=== PATIENT | male | born 1965 | race Caucasian/White ===

== ENCOUNTER 2020-12-03 17:07 | Inpatient (IN) | payer BC ==
[~2020-12-03] VITALS: Ht 185.4 cm; Wt 109.3 kg
[2020-12-03 17:12] VITALS: BP 182/97
[2020-12-03] MEDS ORDERED: MELOXICAM15 MG PO (17:17)
[2020-12-03] MEDS ORDERED: JARDIANCE25 MG PO (17:17)
[2020-12-03] MEDS ORDERED: SHINGRIX ADJUV0.5 ML IM (17:18)
[2020-12-03] MEDS ORDERED: METFORMIN HCL500 MG PO (17:18)
[2020-12-03] MEDS ORDERED: GLIMEPIRIDE4 MG PO (17:19)
[2020-12-03] MEDS ORDERED: LIPITOR40 MG PO (17:19)
[2020-12-03] MEDS ORDERED: LISINOPRIL10 MG PO (17:19)
[2020-12-03] MEDS ORDERED: FLEXERIL PO (17:19)
[2020-12-03] MEDS ORDERED: LEXAPRO20 MG PO (17:20)
[2020-12-03] MEDS ORDERED: [UNRECOGNIZED DRUG - OTHER] IM (17:20)
[2020-12-03] MEDS ORDERED: AMBIEN 10 MG TA10 MG PO (17:21)
[2020-12-03] MEDS ORDERED: NORCO7.5 PO (17:21)
[2020-12-03 17:34] LABS: ABSOLUTE BASOPHILS 0.1 thou/uL (0.0-0.2); ABSOLUTE EOSINOPHILS 0.4 thou/uL (0.0-0.7); ABSOLUTE LYMPHOCYTES 3.1 thou/uL (0.8-5.3); ABSOLUTE MONOCYTES 0.5 thou/uL (0.0-1.2); ABSOLUTE NEUTROPHILS 8.4 thou/uL (1.6-8.1); BASOPHILS 0.9 %; EOSINOPHILS 3.4 %; HEMATOCRIT 46.1 % (42.0-52.0); LYMPHOCYTES 24.8 %; MCH 29.3 pg (26.0-34.0); MCHC 34.8 g/dL (28.0-37.0); MCV 84.1 fL (80.0-100.0); MONOCYTES 4.1 %; MPV 7.4 fl. (7.2-11.1); NUCLEATED RBCS 0 /100WBC; PLATELET COUNT* 249 thou/uL (150-400); POLYS 66.8 %; RBC 5.48 mil/uL (4.50-6.00); RDW-CV 13.8 % (10.5-14.5); WBC 12.6 thou/uL (4.0-11.0)
[2020-12-03 17:42] LABS: CALCIUM 9.3 mg/dL (8.5-10.1); CREATININE 1.2 mg/dL (0.6-1.3); POTASSIUM 3.7 mmol/L (3.5-5.1)
[2020-12-03 17:52] LABS: ALBUMIN 4.5 g/dL (3.4-5.0); MAGNESIUM 1.8 mg/dL (1.8-2.4); TOTAL BILIRUBIN 0.4 mg/dL (<0.1-1.0); TOTAL PROTEIN 8.5 g/dL (6.4-8.2)
--- NOTE | 2020-12-03 20:22 | NUR ---
Heparin gtt started at 2006, see chart and attached paperwork.
--- NOTE | 2020-12-03 21:25 | NUR ---
REPORT GIVEN TO TEDDY BRAUN.
[2020-12-03 21:44] VITALS: BP 102/58
[2020-12-03 21:45] VITALS: BP 109/52
[2020-12-04] VITALS (8 sets, daily range): BP systolic 95–149; BP diastolic 45–76
[2020-12-04 02:23] LABS: ABSOLUTE EOSINOPHILS 0.8 thou/uL (0.0-0.7); ABSOLUTE LYMPHOCYTES 4.6 thou/uL (0.8-5.3); ABSOLUTE MONOCYTES 0.6 thou/uL (0.0-1.2); ABSOLUTE NEUTROPHILS 3.9 thou/uL (1.6-8.1); BASOPHILS 0.1 %; HEMOGLOBIN 14.9 gm/dL (14.0-18.0); LYMPHOCYTES 46.7 %; MCH 29.6 pg (26.0-34.0); MCHC 34.6 g/dL (28.0-37.0); MCV 85.5 fL (80.0-100.0); MONOCYTES 5.8 %; MPV 7.3 fl. (7.2-11.1); NUCLEATED RBCS 0 /100WBC; PLATELET COUNT* 230 thou/uL (150-400); POLYS 39.4 %; RBC 5.03 mil/uL (4.50-6.00); RDW-CV 13.7 % (10.5-14.5); WBC 9.8 thou/uL (4.0-11.0)
[2020-12-04 03:15] LABS: CALCIUM 9.5 mg/dL (8.5-10.1)
--- NOTE | 2020-12-04 06:27 | NUR ---
ASSUMED PT CARE AT APPROX. 2133. PT ARRIVED VIA ED CART. REPORT RECEIVED PER YAMILETH IN ER. PT ADMITTED FOR NSTEMI. VSS. PT DENIES C/O CHEST PAIN. PT REPORTS CHRONIC BACK AND SHOULDER PAIN. MEDICATIONS ADMINISTERED PRESCRIBED. PT IS ON A HEPARIN GTT PROTOCOL. SEE EMAR AND HEPARIN FLOW SHEET. NEXT aPTT LAB IS SCHEDULED TO BE DRAWN TODAY AT 0930. PT IS TRACING SR ON THE DUCT MAKER. ALL PAPERWORK HAS BEEN SIGNED. FALL PRECAUTIONS IN PLACE FOR SAFETY. HOURLY ROUNDS COMPLETE CHARTED. ASSESSMENTS COMPLETED. WILL CONT. TO MONITOR.
[2020-12-04 09:29] LABS: AMP/METHAMP Negative (Negative); BARBITURATES Negative (Negative); BENZODIAZEPINES Negative (Negative); COCAINE Negative (Negative); METHADONE Negative (Negative); OPIATES POSITIVE (Negative); PCP Negative (Negative); THC POSITIVE (Negative)
[2020-12-04 12:00] LABS: CHOLESTEROL 156 mg/dL (<200); HDL CHOLESTEROL 32 mg/dL (>40); LDL CHOLESTEROL 47 mg/dL (<100); TC:HDL 4.9 Ratio (Not establshd); TRIGLYCERIDE 386 mg/dL (<150); VLDL 77 mg/dL (<40)
[2020-12-04 12:01] LABS: SERUM ASSESSMENT Moderate Lipemia
--- NOTE | 2020-12-04 14:16 | EKG ---
[place] [address] ELECTROCARDIOGRAM REPORT Name: ALBA MUNOZ Room: [address] ADM IN .R.#: [id number] Admission: 12/03/20 Attend Phys: Waldemar Elliott, Discharge: Date of : 61 Date of Service: 12/03/20 1712 Report #: [id number] THIS REPORT FOR: //name// [facility] ED Test Date: 2020-12-03 Test Time: 17:12:16 Pat Name: ALBA MUNOZ Department: Room: [facility] Gender: M Strategic Communications Specialist: TP : 1965 Requested By: Ander Calles Order Number: [id number] MD: Brandon Weeks Measurements Intervals [place] Rate: 109 P: 66 CA: 156 QRS: 83 QRSD: 106 T: 50 QT: 365 QTc: 492 Interpretive Statements Sinus tachycardia Borderline prolonged QT interval No previous ECG available for comparison Electronically Signed On 12-04-2020 14:16:20 CDT by Brandon Weeks [email or web address] <ELECTRONICALLY SIGNED> By: Brandon Weeks MD, [facility] 12/04/20 1416 11 11 Brandon Weeks MD, [facility] /EPI
--- NOTE | 2020-12-04 20:22 | NUR ---
I ASSUMED CARE OF THE PATIENT AT 0700. HE IS ALERT AND ORIENTED X4 AND IS UP WITH SBA. BED IS IN THE LOW LOCKED POSITION AND CALL LIGHT IS IN REACH. HOURLY ROUNDING IS COMPLETED AND PATIENT NEEDS ARE MET. PAIN IS MANAGED WITH PRN MEDS. PATIENT IS ON TWO DRIPS AND WILL HAVE AN ANGIOPLASTY IN THE AM. BLOOD GLUCOSE IS BEING MONITORED. WILL CONTINUE TO MONITOR.
[2020-12-05 01:57] LABS: HEMATOCRIT 41.4 % (42.0-52.0); HEMOGLOBIN 14.4 gm/dL (14.0-18.0); MCH 29.6 pg (26.0-34.0); MCHC 34.6 g/dL (28.0-37.0); MCV 85.4 fL (80.0-100.0); MPV 7.2 fl. (7.2-11.1); RBC 4.85 mil/uL (4.50-6.00); RDW-CV 13.8 % (10.5-14.5); WBC 9.6 thou/uL (4.0-11.0)
[2020-12-05 02:44] LABS: CALCIUM 9.6 mg/dL (8.5-10.1); CREATININE 1.2 mg/dL (0.6-1.3); POTASSIUM 3.9 mmol/L (3.5-5.1)
[2020-12-05 04:04] VITALS: BP 110/48
--- NOTE | 2020-12-05 04:26 | NUR ---
ASSUMED PT CARE AT APPROX. 2318. PT ARRIVED VIA ED CART. REPORT RECEIVED PER [facility] IN ER. PT ADMITTED FOR SYNCOPE AND ARF. VSS. PT DENIES C/O PAIN. PT HAS AN 18G LAC W/ NS @100ML/HR. SEE EMAR. PT IS TRACING SR ON THE SLIP LASTER. ALL PAPERWORK HAS BEEN SIGNED. FALL PRECAUTIONS IN PLACE FOR SAFETY. HOURLY ROUNDS COMPLETE CHARTED. ASSESSMENTS COMPLETED. CALL LIGHT WITHIN REACH. WILL CONT. TO MONITOR.
--- NOTE | 2020-12-05 05:03 | NUR ---
ASSUMED PT CARE AT APPROX. 1915. PT IS A/OX4. VSS. PT DENIES C/O CHEST PAIN. MEDICATIONS ADMINISTERED PRESCRIBED. PT IS ON A HEPARIN GTT AND HAS BEEN TITRATED PER PROTOCOL. aPTT LABS DRAWN THIS EVENING. PT IN THERAPEUTIC RANGE. NEXT LAB DRAW RESCHEDULED FOR THIS AM AT 0740. SEE EMAR AND HEPARIN FLOW SHEET. PT IS ALSO ON A NITRO GTT PER CARDIOLOGY. SEE EMAR. PT IS TRACING SR ON THE TRIAGE NURSE. FALL PRECAUTIONS IN PLACE FOR SAFETY. HOURLY ROUNDS COMPLETE CHARTED. ASSESSMENTS COMPLETED. NO ACUTE CHANGES DURING THIS SHIFT. WILL CONT. TO MONITOR.
[2020-12-05 08:00] VITALS: BP 109/69
--- NOTE | 2020-12-05 11:29 | EKG ---
[place] [address] ELECTROCARDIOGRAM REPORT Name: ALBA MUNOZ Room: [address] ADM IN .R.#: [id number] Admission: 12/03/20 Attend Phys: Waldemar Elliott, Discharge: Date of : 61 Date of Service: 12/04/20 1105 Report #: [id number] THIS REPORT FOR: //name// [facility] Test Date: 2020-12-04 Test Time: 11:05:51 Pat Name: ALBA MUNOZ Department: Room: [address] Gender: M Solar Sales Energy Advisor: SUHA : 1965 Requested By: Waldemar Elliott Order Number: [id number] Eben MD: David Villalobos Measurements Intervals [place] Rate: 93 P: 55 OR: 161 QRS: 67 QRSD: 104 T: 53 QT: 402 QTc: 501 Interpretive Statements Sinus rhythm Borderline prolonged QT interval Compared to ECG 12/03/2020 17:12:16 Sinus tachycardia no longer present Electronically Signed On 12-05-2020 11:29:34 CDT by David Villalobos [email or web address] <ELECTRONICALLY SIGNED> By: David Villalobos MD, FAC 12/05/20 1129 1105 1105 David Villalobos MD, [facility] /EPI
[2020-12-05 11:55] VITALS: BP 109/69
--- NOTE | 2020-12-05 13:40 | NUR ---
Pt is A&O. Resides at home with . Independent. No DME. No hx of HH or SNF. Pt had cath today, needs to transfer for high risk PCI vs open heart surgery. Transfer initiated to [facility], await confirmation of ability to accept Pt by Dr Sanchez. EMTALA and ambulance form initiated and on front of Pt's chart. Pt/ aware of dispo plans
--- NOTE | 2020-12-05 15:54 | CARD ---
[address] [address] CARDIAC CATH REPORT Name: ALBA MUNOZ Room: [facility]- ADM IN M.R.#: [id number] Admission: 12/03/20 Attend Phys: Waldemar Elliott MD Discharge: Date of : 61 Report #: [id number] THIS REPORT FOR: cc: FAM - No family physician/PCP FAM - No family physician/PCP David Villalobos MD [facility] ~ APPROVED REPORT Study performed: 12/05/2020 08:34:19 Patient Details Patient Status: In-Patient Room #: The patient is a 55 year-old male Event Personnel David Villalobos Tabular Typist, Miesha Virgen RN Genetic Physician, Aamir Montano [employer] Scrub, Shantell Mendez RTR Monitor, Ze Phillips RTR Scrub Procedures Performed Art Access- Right radial artery, Art Access - R femoral artery, Left Heart Cath w/or w/o Coronaries LHC, Attempted PTCA, Hemostasis w/ Angioseal RFA, Hemostasis with Hemoband RRA Indication Unstable angina (>24 hrs to = 48 hrs), Chest pain Risk Factors Hypercholesterolemia, Hypertension, Diabetes Admission/Lab Medications/Medications given during procedure Glycoprotein IllbIlla Inhibitors, Heparin Unfract., Nitroglycerin IA 600 mcg, Verapamil IA 7.5 mg, Heparin IV 7000 units, Aggrastat IV bolus 10.9 ml, Heparin IV 2000 units, Nitroglycerin IV DRIP 10 mcg restarted post procedure Procedure Narrative The patient was brought electively to the Cardiac Catheterization Laboratory and was prepped and draped in a sterile manner. The right wrist was infiltrated with 2% Lidocaine subcutaneous anesthesia. IV conscious sedation was used throughout procedure with appropriate monitoring and was performed in the presence of a registered nurse who was an independent trained [place] [address] CARDIAC CATH REPORT Name: ALBA MUNOZ Room: [address] IN ..#: [id number] Admission: 12/03/20 Attend Phys: Waldemar Elliott MD Discharge: Date of : 61 Report #: [id number] performing the procedure. A 6F Slender [place] sheath was inserted into the right radial artery. Coronary angiography was performed using coronary diagnostic catheters. The right coronary system was accessed and visualized with a 6F JR4 catheter. The left coronary system was accessed and visualized with a 6F JL4 catheter. The left ventricle was accessed and visualized with a 6F Pigtail catheter. Left ventricular/Aortic Valve gradient assessed via catheter pullback. Left ventriculogram was performed in GOFF projection. Closure device was deployed with a 6 Fr Radial Vasc band 24 cm. The patient tolerated the procedure well and there were no complications associated with the procedure. There was no hematoma. Access switched to right groin, near the end of the procedure. The right groin was infiltrated with 2% Lidocaine subcutaneous anesthesia. A 6F Ultimum sheath was inserted in the right femoral artery. A Closure device was deployed with a 6F Angioseal STS. There was no hematoma. Attempted PCI procedure of the mid RCA, from radial and femoral access. Procedure aborted after attempt with multiple guide catheters and wires. Intraoperative Conscious Sedation Sedation start time: 09:17 Case end Time: 11:01 Fentanyl 50 mcg Versed 4 mg Fluoro Time: 30.8 minutes Dose: DAP [id number] cGycm2 2709 mGy Contrast Type and Amount: Omnipaque 270 ml Coronary Angiography The patient's coronary anatomy is right dominant. Diagnostic Cath Left Main 30% distal stenosis LAD 30% proximal stenosis Circumflex 30% mid stenosis OM3 50% proximal stenosis Right Coronary Calcified plaque noted in the ostial RCA. Mid RCA had a 99% stenosis with thrombus. 40% stenosis in the distal RCA. Left Ventriculography The left ventricular ejection fraction is estimated to be 50-55%. Left ventricular wall motion abnormalities are present. There is no mitral insufficiency. Mild inferior [place] [address] CARDIAC CATH REPORT Name: ALBA MUNOZ Room: [address] IN M.R.#: [id number] Admission: 12/03/20 Attend Phys: Waldemar Elliott MD Discharge: Date of : 61 Report #: [id number] Hemodynamics The aortic pressure is 108/70 mmHg with a mean of 86 mmHg. The left ventricular pressure is 108/4 mmHg with a mean of mmHg. The left ventricular end diastolic pressure is 8 mmHg. There was no gradient across the aortic valve upon pullback. Pullback from the left ventricle to the aorta revealed no gradient across the aortic valve. PCI Technique Lesion Anticoagulation was achieved with Heparin. Bolus of IV aggrastat given Percutaneous coronary intervention was performed on the mid right coronary artery. The lesion stenosis prior to intervention was 99% with LACEY 3 flow. A XBRCA Guide Catheter was used to engage the RCA ostium. A [employer] Flex Interventional Guidewire was used to cross the lesion. BALLOON DILATION A Balloon catheter 2.5 x 12 mm was inserted and inflated up to 0atm for 0seconds. Repeat angiography revealed the following post-dilatation results: 99% stenosis. Final angiography reveals 99 % stenosis with LACEY 3 flow. COMMENTS Unable to achieve adequate guide support with JCR4, nor 3DRC, nor modified Right Amplatz, nor left Amplatz 0.75, nor left Amplatz 2.0. Therefore switched from the radial approach to the femoral approach for addtional guide support. Attempt PTCA with right XB guide catheter, using a Pro water flex guide wire extended into the distal RCA and a BMW brad wire extended in the RV branch. However, even with a Brad wire, was unable to advance the PTCA balloon catheter to the area of stenosis, because of tortuosity, calcification in the RCA, and lack of guiding catheter support. Procedure was abandoned and the patient was transferred to a hospital with open heart surgery backup. Conclusion 1. 99% stenosis with thrombus in the mid RCA. 2. LVEF 50-55% 3. Unable to perform PTCA because of lack of guide support, as well as tortusity of the proximal RCA, calcification of the RCA, and severity of the stenosis. Recommendations [address] [place] [address] CARDIAC CATH REPORT Name: ALBA MUNOZ Room: [address] ADM IN Lizette.#: [id number] Admission: 12/03/20 Attend Phys: Waldemar Elliott MD Discharge: Date of : 61 Report #: [id number] Consider transfer to a hospital with cardiac surgery standby, and consider aggresive interventional therapy versus CABG. <ELECTRONICALLY SIGNED> By: David Villalobos MD, FACC 12/05/20 1554 1554 1554Djohann Villalobos MD, FACC /INF
--- NOTE | 2020-12-05 17:44 | NUR ---
VS CHARTED, SR TO ST ON TELE, ROOM AIR, UP AD AFTAB TO BATHROOM, HEART CATH ATTEMPTED, RIGHT RADIAL AND GROIN SITES, BOTH SITES CLEAN DRY INTACT WITH NO HEMATOMAS, PATIENT TRANFERRED TO [facility] FOR FURTHER CARDIAC TREATMENT- PATIENT LEFT WITH EMS ON NITRO DRIP AT 10MCG/HR. PUMP AND TELE MONITOR SENT WITH EMS- WILL APPRENTICE ARCHITECT FROM [employer] THIS EVENING AND RETURN TO HOSPITAL. REPORT GIVEN TO KADE SOL AT [facility]
--- NOTE | 2020-12-06 15:46 | CON ---
[address] [address] CONSULTATION Name: ALBA MUNOZ Room: [address] IN M.R.#: [id number] Admission: 12/03/20 Attend Phys: Waldemar Elliott MD Discharge: 12/05/20 Date of : 61 Report #: [id number] THIS REPORT FOR: cc: MATY - No family physician/PCP FAM - No family physician/PCP Brandon Weeks MD [facility] ~ DOC #: [id number] cc: MD Brandon Jacobo MD DATE OF CONSULTATION: 12/04/2020 CARDIOLOGY CONSULTATION INDICATION: Non-ST elevation myocardial infarction. HISTORY OF PRESENT ILLNESS: The patient is a very pleasant 55-year-old gentleman with no prior history of coronary artery disease. Cardiac risk factors include hypertension, type 2 diabetes mellitus and probable dyslipidemia. He has a previous history of tobacco use, but quit remotely. He presented to the hospital after having intermittent chest discomfort, described as central to the left of the sternum, radiating to the left shoulder area and neck intermittently over the past 2 weeks. The pain is worse with activity. He denies any diaphoresis or nausea with the activity. EKG shows sinus rhythm without acute ST segment changes. His initial troponin was slightly elevated at 0.13. The patient has continued to have intermittent chest discomfort here in the hospital. He has been placed on a heparin drip per Cardiology protocol and received aspirin. He has pain relieved with sublingual nitroglycerin. PAST MEDICAL HISTORY: 1. Hypertension. 2. Type 2 diabetes mellitus. 3. Probable dyslipidemia. FAMILY HISTORY: Positive for coronary artery disease. The patient's father had his first heart attack at the age of 51. SOCIAL HISTORY: The patient drinks alcohol occasionally. He quit smoking remotely. REVIEW OF SYSTEMS: A 14-point review of systems as per HPI, [place] [address] CONSULTATION Name: TAMMYMOOKIEALBA Room: [address]#: [id number] Admission: 12/03/20 Attend Phys: Waldemar Elliott MD Discharge: 12/05/20 Date of : 61 Report #: [id number] CURRENT MEDICATIONS: Atorvastatin 40 mg daily, Flexeril 10 mg t.i.d., Jardiance 25 mg daily, Lexapro 20 mg daily, glimepiride 4 mg daily, lisinopril 10 mg daily, meloxicam 15 mg daily, metformin 500 mg b.i.d., Randall 7.5/325 q. 6 hours p.r.n., Ambien 10 mg at bedtime p.r.n. ALLERGIES: No known drug allergies. PHYSICAL EXAMINATION: VITAL SIGNS: Stable. Blood pressure 149/73, pulse is 90 and regular. GENERAL: This is a pleasant gentleman in no distress. Mood and affect appropriate. HEENT: The patient is wearing glasses. Extraocular muscles are intact. Mucous membranes are moist. NECK: Examination of the neck shows no jugular venous distention. There are no carotid bruits. CHEST: Reveals clear lung lopez without wheezes or rales. CARDIAC: Reveals a regular rhythm with normal S1 and S2. I do not appreciate gallop or murmur. ABDOMEN: Examination of the abdomen reveals normal bowel sounds. The abdomen is soft and nontender. EXTREMITIES: Shows no edema. Peripheral pulses are 2+ and palpable. SKIN: Warm and dry. LABORATORY DATA: A 12-lead EKG shows sinus rhythm with no acute ST or T-wave abnormalities. Labs are reviewed. Troponin on arrival was 0.16 and then 0.16 and then 0.19 sequentially. NT-proBNP 114. Renal function is normal. Chest x-ray shows no acute cardiopulmonary process. IMPRESSION AND RECOMMENDATIONS: 1. Non-ST elevation myocardial infarction. We will continue heparin drip per Cardiology protocol. We will start nitroglycerin drip at this time. Continue daily aspirin. We will start low dose beta anton. We will plan on left heart catheterization, coronary angiography and possible intervention. 2. Hypertension. Blood pressure mildly elevated. We will initiate low dose beta anton at this time. 3. Dyslipidemia. Continue atorvastatin at current dose. Repeat fasting lipid profile. 4. Type 2 diabetes mellitus per hospitalist. Brandon Weeks MD [facility] [address] CONSULTATION Name: ALBA MUNOZ Room: [address] IN M.R.#: [id number] Admission: 12/03/20 Attend Phys: Waldemar Elliott MD Discharge: 12/05/20 Date of : 61 Report #: [id number] <ELECTRONICALLY SIGNED> By: Brandon Weeks MD, FACC 12/06/20 1546 1049 [id number] Weeks MD, FACJean-Paul /nt
[2020-12-07] MEDS ORDERED: NITROGLYCERIN0.4 MG SUBLING (08:55)
[2020-12-07] MEDS ORDERED: EFFIENT10 MG PO (08:55)
[2020-12-07] MEDS ORDERED: ADULT LOW DOSE81 MG PO (08:55)
[2020-12-07] MEDS ORDERED: TOPROL XL25 MG PO (15:11)
== END 2020-12-05 15:30 | disposition short-term general hospital (02) | DRG 282 ==
LOC: M.ERS 17:07 → M.TBA-ER 18:42 → M.2W 18:42
PROVIDERS: Emergency Medicine Emergency Medical Services; Family Medicine; Internal Medicine Cardiovascular Disease; ADMIT Internal Medicine; ATTEND Internal Medicine
PROC: B2151ZZ Fluoroscopy of Left Heart using Low Osmolar Contrast (ICD-10-PCS; principal; 2020-12-05)
PROC: 4A023N7 Measurement of Cardiac Sampling and Pressure, Left Heart, Percutaneous Approach (ICD-10-PCS; principal; 2020-12-05)
PROC: 02JA3ZZ Inspection of Heart, Percutaneous Approach (ICD-10-PCS; principal; 2020-12-05)
PROC: B2111ZZ Fluoroscopy of Multiple Coronary Arteries using Low Osmolar Contrast (ICD-10-PCS; principal; 2020-12-05)
DX: I21.4 Non-ST elevation (NSTEMI) myocardial infarction (principal); K21.9 Gastro-esophageal reflux disease without esophagitis; I10 Essential (primary) hypertension; E11.9 Type 2 diabetes mellitus without complications; G89.29 Other chronic pain; M54.9 Dorsalgia, unspecified; E78.5 Hyperlipidemia, unspecified; I25.10 Atherosclerotic heart disease of native coronary artery without angina pectoris; D72.829 Elevated white blood cell count, unspecified; E66.9 Obesity, unspecified; Z20.822 Contact with and (suspected) exposure to COVID-19; Z86.711 Personal history of pulmonary embolism; Z86.718 Personal history of other venous thrombosis and embolism; Z79.84 Long term (current) use of oral hypoglycemic drugs; Z79.899 Other long term (current) drug therapy; Z87.891 Personal history of nicotine dependence; Z72.89 Other problems related to lifestyle; Z68.31 Body mass index [BMI] 31.0-31.9, adult; Z82.49 Family history of ischemic heart disease and other diseases of the circulatory system